=== PATIENT | male | born 2000 | race Caucasian/White ===

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

== ENCOUNTER 2023-07-12 14:28 | Emergency (ER) | payer OTHER ==
[2023-07-12 14:37] VITALS: BMI 25.0
[2023-07-12 15:50] LABS: BASO % 0.8 % (0-2.0); EOS % 1.4 % (0-4.5); HEMATOCRIT 40.7 % (35.4-49); LYMPH % 15.1 % (8-40); MEAN CELL VOLUME 62.3 fl (80-96); MONO % 8.4 % (3.8-10.2); NEUT % 74.3 % (42.8-82.8); PLATELET COUNT 270 10^3/uL (134-434); RBC 6.53 M/mm3 (4.00-5.60); RDW 15.7 % (11.9-15.9); WHITE BLOOD COUNT 7.7 K/mm3 (4.0-10.0)
[2023-07-12 15:51] LABS: URINE APPEARANCE CLEAR; URINE BILIRUBIN NEGATIVE (NEGATIVE); URINE COLOR YELLOW; URINE GLUCOSE (UA) NEGATIVE (NEGATIVE); URINE KETONE NEGATIVE (NEGATIVE); URINE LEUK ESTERASE NEGATIVE (NEGATIVE); URINE NITRITE NEGATIVE (NEGATIVE); URINE PROTEIN NEGATIVE (NEGATIVE); URINE UROBILINOGEN 0.2 mg/dL (0.2-1.0)
[2023-07-12 15:57] LABS: MCH 19.9 pg (25.7-33.7)
[2023-07-12 16:23] LABS: ALBUMIN 4.5 g/dl (3.4-5.0)
[2023-07-12 16:24] LABS: CALCIUM 9.2 mg/dL (8.5-10.1)
[2023-07-12 16:26] LABS: POTASSIUM 3.9 mmol/L (3.5-5.1)
[2023-07-12 16:28] LABS: CREATININE 0.7 mg/dL (0.55-1.3)
[2023-07-12 16:29] LABS: BILIRUBIN,TOTAL 0.6 mg/dL (0.2-1); TOT PROT 7.8 g/dl (6.4-8.2)
[2023-07-12 16:49] VITALS: BP 118/70; PULSE 72; RESP 20; TEMP 98
[2023-07-12 20:38] LABS: PLATELET ESTIMATE NORMAL
[2023-07-12] MEDS ORDERED: levETIRAcetam 500 MG TABLET (FP) PO SCH (22:00)
== END 2023-07-12 17:04 | disposition home or self-care (01) ==
LOC: JER 14:28
DX: G40.909 Epilepsy, unspecified, not intractable, without status epilepticus (principal); R06.89 Other abnormalities of breathing; Z20.822 Contact with and (suspected) exposure to COVID-19
CPT/HCPCS: 0241U-QW; 36415; 71046-TC-FY; 80053; 80177; 81003; 85025; 87086; 93005; 93010; 99285-25

== ENCOUNTER 2023-09-07 07:46 | Emergency (ER) | payer OTHER ==
[2023-09-07 07:50] VITALS: BP 112/77; PULSE 95; RESP 18; TEMP 98.6; BMI 26.6
[2023-09-07] MEDS ORDERED: IBUPROFEN 600 MG TABLET (FP) PO ONE (08:25)
[2023-09-07] MEDS: IBUPROFEN 600 MG TABLET (FP) PO ONE (08:29)
[2023-09-07] MEDS: ALBUTEROL SO4 2.5/IPRATROPIUM 0.5 INH SOL 3 ML VIAL.NEB. NEB ONE (08:29)
== END 2023-09-07 09:36 | disposition home or self-care (01) ==
LOC: JER 07:46
PROC: 3E0F7GC Introduction of Other Therapeutic Substance into Respiratory Tract, Via Natural or Artificial Opening (ICD-10-PCS; principal; 2023-09-07)
DX: R50.9 Fever, unspecified (principal); R05.9 Cough, unspecified; R09.89 Other specified symptoms and signs involving the circulatory and respiratory systems; R52 Pain, unspecified; J40 Bronchitis, not specified as acute or chronic; B34.9 Viral infection, unspecified; Z20.822 Contact with and (suspected) exposure to COVID-19
CPT/HCPCS: 0241U-QW; 71046-TC-FY; 99284-25

== ENCOUNTER 2023-09-19 00:15 | Emergency (ER) | payer OTHER ==
[2023-09-19 00:42] VITALS: BMI 23.6
[2023-09-19] MEDS ORDERED: levETIRAcetam 500 MG TABLET (FP) PO ONE (00:58)
[2023-09-19] MEDS: levETIRAcetam 500 MG TABLET (FP) PO ONE (01:04)
[2023-09-19 01:26] LABS: BASO % 0.4 % (0-2.0); EOS % 0.6 % (0-4.5); HEMATOCRIT 35.8 % (35.4-49); HEMOGLOBIN 11.7 GM/dL (11.7-16.9); LYMPH % 9.5 % (8-40); MCHC 32.6 g/dl (32.0-35.9); MEAN CELL VOLUME 61.1 fl (80-96); MEAN PLT VOLUME 7.8 fl (7.5-11.1); MONO % 6.3 % (3.8-10.2); NEUT % 83.2 % (42.8-82.8); PLATELET COUNT 419 10^3/uL (134-434); RBC 5.87 M/mm3 (4.00-5.60); RDW 15.9 % (11.9-15.9); WHITE BLOOD COUNT 14.7 K/mm3 (4.0-10.0)
[2023-09-19 01:45] LABS: CHLORIDE 106 mmol/L (98-107); POTASSIUM 5.7 mmol/L (3.5-5.1); SODIUM 137 mmol/L (136-145)
[2023-09-19 01:47] LABS: MCH 19.9 pg (25.7-33.7)
[2023-09-19 01:49] LABS: ALBUMIN 3.6 g/dl (3.4-5.0); ANION GAP 1 mmol/L (4-13); CALCIUM 8.6 mg/dL (8.5-10.1); CO2 30 mmol/L (21-32); GLUCOSE,RANDOM 115 mg/dL (74-106)
[2023-09-19 01:50] LABS: BLOOD UREA NITROGEN 14.5 mg/dL (7-18)
[2023-09-19 01:52] LABS: CREATININE 0.6 mg/dL (0.55-1.3); SGOT/AST 82 U/L (15-37); SGPT/ALT 106 U/L (13-61)
[2023-09-19 01:53] LABS: ALK PHOS 50 U/L (45-117)
[2023-09-19 01:54] LABS: TOT PROT 6.9 g/dl (6.4-8.2)
[2023-09-19 01:56] LABS: BILIRUBIN,TOTAL 0.6 mg/dL (0.2-1)
[2023-09-19 02:18] LABS: EPI CELLS 19 /uL (0-25.1); HYALINE CASTS 2 /uL (0-3.1); PH,URINE 6.5 (5.0-8.0); URINE APPEARANCE CLEAR; URINE BACTERIA 6 /uL (0-1359); URINE BILIRUBIN NEGATIVE (NEGATIVE); URINE COLOR YELLOW; URINE GLUCOSE (UA) NEGATIVE (NEGATIVE); URINE KETONE NEGATIVE (NEGATIVE); URINE LEUK ESTERASE NEGATIVE (NEGATIVE); URINE NITRITE NEGATIVE (NEGATIVE); URINE PROTEIN 2+ (NEGATIVE); URINE RBC 5 /uL (0-23.9); URINE UROBILINOGEN 0.2 mg/dL (0.2-1.0); URINE WBC 22 /uL (0-25.8)
[2023-09-19 03:19] VITALS: BP 106/64; PULSE 80; RESP 18; TEMP 98.1
[2023-09-19 05:45] LABS: ANISOCYTOSIS 3+; MACROCYTOSIS 0; OVALOCYTE 1+; ROULEAU 1+; TARGET CELLS 1+
== END 2023-09-19 04:16 | disposition home or self-care (01) ==
LOC: JER 00:15
DX: R56.9 Unspecified convulsions (principal)
CPT/HCPCS: 36415; 70450-TC; 71045-TC-FY; 72125-TC; 80053; 80307; 81003; 83605; 85025; 87086; 93005; 93010; 99285-25